=== PATIENT | female | born 1950 | race African-American/Black ===

== ENCOUNTER 2016-12-10 18:51 | Emergency (ER) | payer MEDICARE, MEDICAID ==
[~2016-12-10] VITALS: Ht 162.6 cm; Wt 58.0 kg
[~2016-12-10 18:51] MED LIST: ACET120E PO; ACET1TAB14 PO; AMLO10TA80 PO; ASPI-1159 GT; ATEN-42 GT; FAMO40TA35 PO; FERR-63 GT; OMEP20TA15 GT; PROT40 GT; VIT500LI GT
[2016-12-10] MEDS ORDERED: ACETAMINOPHEN WITH CODEINE 300/30MG TABLET PO ONE (20:00)
[2016-12-10 20:33] VITALS: BP 168/95
== END 2016-12-10 20:30 | disposition home or self-care (01) ==
LOC: ER 19:36
DX: K94.23 Gastrostomy malfunction (principal); Z79.82 Long term (current) use of aspirin
CPT/HCPCS: 43753; 43760; 99284; A4315

== ENCOUNTER 2016-12-28 15:24 | Emergency (ER) | payer MEDICARE, MEDICAID ==
[~2016-12-28] VITALS: Ht 165.1 cm; Wt 60.0 kg
[2016-12-28] MEDS ORDERED: MORPHINE SULFATE 4 MG/ML CPJ (NOT FOR IM USE) IV STA (16:40)
[2016-12-28 17:08] LABS: CLARITY URINE CLEAR (CLEAR); COLOR URINE YELLOW (YELLOW); GLUCOSE URINE NEGATIVE (NEGATIVE); KETONES URINE NEGATIVE (NEGATIVE); LEUKOCYTE ESTERASE URINE 1+ (NEGATIVE); NITRITE URINE NEGATIVE (NEGATIVE); OCCULT BLOOD URINE NEGATIVE (NEGATIVE); PROTEIN URINE 2+ (NEGATIVE); SPECIFIC GRAVITY URINE 1.026 (1.005-1.030)
[2016-12-28 17:22] LABS: BASOPHILS % 1.2 % (0.0-2.0); EOSINOPHILS % 1.5 % (0.0-5.0); HEMATOCRIT. 36.7 % (36.0-48.0); LYMPHOCYTES % 25.2 % (20.0-50.0); MEAN CORPUSCULAR HEMOGLOBIN 28.9 pg (28.0-32.0); MEAN CORPUSCULAR VOLUME 88.5 fL (81.0-99.0); MEAN PLATELET VOLUME 7.8 fl (7.4-10.4); MONOCYTES % 9.9 % (2.0-8.0); NEUTROPHILS % 62.2 % (40.0-76.0); PLATELET 280 x1000/uL (130-400); RED BLOOD CELL COUNT 4.15 mill/uL (4.2-5.4); RED CELL DISTRIBUTION WIDTH 15.8 % (11.6-14.6)
[2016-12-28 17:26] LABS: CHLORIDE 104 mEq/L (98-107)
[2016-12-28 17:28] LABS: PROTHROMBIN TIME 10.7 sec
[2016-12-28 17:35] LABS: CARBON DIOXIDE 27 mEq/L (21-32)
[2016-12-28] MEDS ORDERED: CEFTRIAXONE 1 G PREMIX 50 ML IV ONE (18:15)
[2016-12-28] MEDS ORDERED: TRAMADOL 50MG TABLET PO ONE (19:45)
[2016-12-28 20:00] VITALS: BP 131/82
== END 2016-12-28 20:05 | disposition home or self-care (01) ==
LOC: ER 15:24
DX: N39.0 Urinary tract infection, site not specified (principal); R10.819 Abdominal tenderness, unspecified site; Z43.1 Encounter for attention to gastrostomy; K59.00 Constipation, unspecified; K44.9 Diaphragmatic hernia without obstruction or gangrene; I11.9 Hypertensive heart disease without heart failure; J98.11 Atelectasis; J43.9 Emphysema, unspecified; Z95.0 Presence of cardiac pacemaker; Z98.84 Bariatric surgery status; Z79.82 Long term (current) use of aspirin; Z79.899 Other long term (current) drug therapy; I10 Essential (primary) hypertension; Z90.89 Acquired absence of other organs
CPT/HCPCS: 36415; 74176; 80053; 81001; 83690; 85025; 85610; 96365; 96375; 99285; J0696; J2270

== ENCOUNTER 2017-01-06 19:52 | Emergency (ER) | payer MEDICARE, MEDICAID ==
[~2017-01-06] VITALS: Ht 162.6 cm; Wt 58.0 kg
[2017-01-07 00:15] VITALS: BP 158/94
== END 2017-01-07 00:20 | disposition home or self-care (01) ==
LOC: ER 21:09
DX: Z43.1 Encounter for attention to gastrostomy (principal); I10 Essential (primary) hypertension; Z93.1 Gastrostomy status; Z79.82 Long term (current) use of aspirin; Z95.0 Presence of cardiac pacemaker
CPT/HCPCS: 43760; 74000; 99284

== ENCOUNTER 2017-01-14 18:58 | Emergency (ER) | payer MEDICARE, MEDICAID ==
[~2017-01-14] VITALS: Ht 162.6 cm; Wt 57.0 kg
[2017-01-15] MEDS ORDERED: HYDROCODONE/ACETAMINOPHEN 10/325MG TABLET PO ONE (00:30)
[2017-01-15 00:46] VITALS: BP 161/89
== END 2017-01-15 01:11 | disposition home or self-care (01) ==
LOC: ER 18:58
DX: Z43.1 Encounter for attention to gastrostomy (principal); I10 Essential (primary) hypertension; Z79.82 Long term (current) use of aspirin
CPT/HCPCS: 74000; 99283

== ENCOUNTER 2017-01-27 20:38 | Inpatient (IN) | payer MEDICARE, MEDICAID ==
[~2017-01-27] VITALS: Ht 162.6 cm; Wt 56.4 kg
[~2017-01-27 20:38] MED LIST changes: -FAMO40TA35 PO; +FAMO40TA70 PO
[2017-01-27] MEDS ORDERED: NITROGLYCERIN OINT 1GM/INCH UDPKT TD STA (22:52)
[2017-01-27] MEDS ORDERED: ENALAPRIL 2.5MG/2ML VIAL 2ML IV STA (22:52)
[2017-01-27 23:34] LABS: BASOPHILS % 1.2 % (0.0-2.0); EOSINOPHILS % 0.9 % (0.0-5.0); HEMATOCRIT. 34.4 % (36.0-48.0); HEMOGLOBIN. 11.2 g/dL (12.0-16.0); MEAN CORPUSCULAR HEMOGLOBIN 28.6 pg (28.0-32.0); MEAN CORPUSCULAR VOLUME 88.2 fL (81.0-99.0); MEAN PLATELET VOLUME 7.6 fl (7.4-10.4); MONOCYTES % 12.2 % (2.0-8.0); NEUTROPHILS % 59.7 % (40.0-76.0); PLATELET 272 x1000/uL (130-400); RED CELL DISTRIBUTION WIDTH 15.2 % (11.6-14.6)
[2017-01-27 23:43] LABS: CARBON DIOXIDE 25 mEq/L (21-32); CHLORIDE 107 mEq/L (98-107); TROPONIN I 0.16 ng/mL (0.00-0.04)
[2017-01-28] MEDS ORDERED: MORPHINE SULFATE 4 MG/ML CPJ (NOT FOR IM USE) IV ONE (00:30)
[2017-01-28] MEDS ORDERED: SODIUM CHLORIDE 0.9% 1,000 ML IV SCH (00:37)
[2017-01-28 02:50] VITALS: BP 126/62
[2017-01-28] MEDS ORDERED: ONDANSETRON HCL 4MG/2ML VIAL IV PRN (04:30)
[2017-01-28] MEDS ORDERED: IPRATROPIUM/ALBUTEROL 0.5-3(2.5)MG/3ML NEB INH PRN (04:30)
[2017-01-28] MEDS ORDERED: ACETAMINOPHEN WITH CODEINE 300/30MG TABLET PO PRN ×2 (04:30→12:30)
[2017-01-28] MEDS ORDERED: ACETAMINOPHEN WITH CODEINE 300/60MG TABLET PO SCH (04:30)
[2017-01-28] MEDS ORDERED: MORPHINE SULFATE 4 MG/ML CPJ (NOT FOR IM USE) IV NR (06:00)
[2017-01-28] MEDS: SODIUM CHLORIDE 0.9% INJ 3ML FLUSH IVF SCH ×3 (06:34→22:00)
[2017-01-28 08:00] VITALS: BP 130/80
[2017-01-28] MEDS: AMLODIPINE 10MG TABLET PO SCH (10:08)
[2017-01-28] MEDS: ATENOLOL 25MG TABLET PO SCH (10:09)
[2017-01-28] MEDS: ACETAMINOPHEN WITH CODEINE 120-12MG/5ML UDC PO PRN ×2 (10:34→17:30)
[2017-01-28 12:00] VITALS: BP 127/84
[2017-01-28 16:00] VITALS: BP 155/97
[2017-01-28 20:16] VITALS: BP 129/85
[2017-01-28] MEDS: HYDROMORPHONE HCL/PF 2MG/ML CPJ IV NR ×2 (21:04→21:12)
[2017-01-29] VITALS: BP 133/85
[2017-01-29 04:00] VITALS: BP 130/75
[2017-01-29] MEDS: SODIUM CHLORIDE 0.9% INJ 3ML FLUSH IVF SCH ×3 (06:54→22:27)
[2017-01-29 08:00] VITALS: BP 116/69
[2017-01-29] MEDS: ATENOLOL 25MG TABLET PO SCH (09:00)
[2017-01-29] MEDS: AMLODIPINE 10MG TABLET PO SCH (09:00)
[2017-01-29 12:00] VITALS: BP 123/82
[2017-01-29 16:00] VITALS: BP 134/90
[2017-01-29 20:00] VITALS: BP 170/88
[2017-01-29] MEDS: ACETAMINOPHEN WITH CODEINE 120-12MG/5ML UDC PO PRN (21:36)
[2017-01-29] MEDS ORDERED: CLONIDINE 0.1MG TABLET PO PRN (22:00)
[2017-01-29] MEDS ORDERED: HYDRALAZINE 20MG/ML VIAL IV PRN (22:00)
[2017-01-29] MEDS: HYDROMORPHONE HCL/PF 2MG/ML CPJ IV PRN (22:20)
[2017-01-30] VITALS: BP 160/97
[2017-01-30] MEDS: DIPHENHYDRAMINE 50MG/ML VIAL IV PRN ×2 (02:33→11:56)
[2017-01-30] MEDS: SODIUM CHLORIDE 0.9% INJ 3ML FLUSH IVF SCH ×2 (06:08→13:13)
[2017-01-30] MEDS ORDERED: LIDOCAINE HCL 1% 20ML VIAL (Pyxis) INJ ONE (07:29)
[2017-01-30] MEDS ORDERED: IOHEXOL-300 50 ML BOTTLE IV ONE (07:29)
[2017-01-30] MEDS ORDERED: SODIUM BICARBONATE 4% (2.4MEQ) 5ML VIAL IV ONE (07:29)
[2017-01-30 08:00] VITALS: BP 158/92
[2017-01-30] MEDS ORDERED: LIDOCAINE HCL 2% JELLY 5ML ONE (08:06)
[2017-01-30] MEDS: AMLODIPINE 10MG TABLET PO SCH (08:57)
[2017-01-30] MEDS: ATENOLOL 25MG TABLET PO SCH (08:57)
[2017-01-30] MEDS: HYDROMORPHONE HCL/PF 2MG/ML CPJ IV PRN (09:21)
[2017-01-30 12:00] VITALS: BP 123/83
[2017-01-30 16:13] VITALS: BP 152/92
[2017-01-30] MEDS: ACETAMINOPHEN WITH CODEINE 120-12MG/5ML UDC PO PRN (16:16)
[2017-01-30 17:56] VITALS: BP 132/91
== END 2017-01-30 19:30 | disposition home or self-care (01) | DRG 394 ==
LOC: ER 20:38 → 6WST 01-28 00:39 → EDBEDREQ 01-28 00:44 → ENRESERV 01-28 02:00
PROVIDERS: ADMIT Internal Medicine; ATTEND Internal Medicine
PROC: 0D2DXUZ Change Feeding Device in Lower Intestinal Tract, External Approach (ICD-10-PCS; principal; 2017-01-28)
DX: K94.13 Enterostomy malfunction (principal); E46 Unspecified protein-calorie malnutrition; I10 Essential (primary) hypertension; R07.89 Other chest pain; Y83.8 Other surgical procedures as the cause of abnormal reaction of the patient, or of later complication, without mention of misadventure at the time of the procedure; M54.2 Cervicalgia; E03.9 Hypothyroidism, unspecified; Z95.0 Presence of cardiac pacemaker; Z79.82 Long term (current) use of aspirin; Z79.899 Other long term (current) drug therapy; Z98.84 Bariatric surgery status; Z90.49 Acquired absence of other specified parts of digestive tract; Y92.89 Other specified places as the place of occurrence of the external cause; Z68.21 Body mass index [BMI] 21.0-21.9, adult
CPT/HCPCS: 36415; 49450; 71010; 80053; 83690; 84484; 85025; 93005; 96361; 96374; 96375; 99285; C1725; C1769; J0360; J1170; J1200; J2270; J3490; J7030; J7040; L8514; Q9967

== ENCOUNTER → 2017-12-14 | Outpatient (CLI) | payer MEDICARE, MEDICAID ==
[~2017-12-14] MED LIST changes: -ACET120E PO; -ACET1TAB14 PO; +AMLO10TA80 GT; -AMLO10TA80 PO; -ASPI-1159 GT; +FAMO40TA70 GT; -FAMO40TA70 PO; +FOLI0.4T2 GT; +HYDR25TA GT; -OMEP20TA15 GT; -PROT40 GT; -VIT500LI GT
== END | disposition home or self-care (01) ==
LOC: MAMMO 10:59
PROVIDERS: ATTEND Internal Medicine Nephrology
DX: Z12.31 Encounter for screening mammogram for malignant neoplasm of breast (principal); R92.1 Mammographic calcification found on diagnostic imaging of breast
CPT/HCPCS: 77067

== ENCOUNTER 2018-01-03 08:51 | Inpatient (IN) | payer MEDICARE, MEDICAID ==
[~2018-01-03] VITALS: Ht 162.6 cm; Wt 67.1 kg
[2018-01-03] MEDS ORDERED: NITROGLYCERIN OINT 1GM/INCH UDPKT TD ONE (10:15)
[2018-01-03] MEDS ORDERED: ASPIRIN 81MG TABLET PO ONE (10:15)
[2018-01-03 10:59] LABS: BASOPHILS % 1.2 % (0.0-2.0); EOSINOPHILS % 3.4 % (0.0-5.0); HEMATOCRIT. 33.6 % (36.0-48.0); HEMOGLOBIN. 11.2 g/dL (12.0-16.0); MEAN CORPUSCULAR VOLUME 87.3 fL (81.0-99.0); MEAN PLATELET VOLUME 7.9 fl (7.4-10.4); MONOCYTES % 8.6 % (2.0-8.0); NEUTROPHILS % 59.8 % (40.0-76.0); PLATELET 242 x1000/uL (130-400); RED BLOOD CELL COUNT 3.85 mill/uL (4.2-5.4); RED CELL DISTRIBUTION WIDTH 16.3 % (11.6-14.6)
[2018-01-03] MEDS ORDERED: LIDOCAINE HCL 1% 20ML VIAL (Pyxis) INJ ONE (11:08)
[2018-01-03] MEDS ORDERED: IOHEXOL-300 50 ML BOTTLE IV ONE (11:08)
[2018-01-03] MEDS ORDERED: SODIUM BICARBONATE 4% (2.4MEQ) 5ML VIAL IV ONE (11:08)
[2018-01-03 11:13] LABS: CHLORIDE 111 mEq/L (98-107)
[2018-01-03 11:14] LABS: PARTIAL THROMBOPLASTIN TIME 28.5 sec (23.4-31.0); PROTHROMBIN TIME 10.1 sec (9.1-11.1)
[2018-01-03] MEDS ORDERED: LIDOCAINE HCL 2% JELLY 5ML ONE (11:16)
[2018-01-03] MEDS ORDERED: MORPHINE SULFATE 4 MG/ML CPJ (NOT FOR IM USE) IV STA (12:45)
[2018-01-03] MEDS ORDERED: ONDANSETRON HCL 4MG/2ML VIAL IV STA (12:45)
[2018-01-03] MEDS ORDERED: IPRATROPIUM/ALBUTEROL 0.5-3(2.5)MG/3ML NEB INH PRN (14:00)
[2018-01-03] MEDS ORDERED: CLONIDINE 0.1MG TABLET PO PRN (14:00)
[2018-01-03] MEDS ORDERED: DOCUSATE SODIUM 100MG CAPSULE PO PRN (14:00)
[2018-01-03] MEDS ORDERED: MAGNESIUM/ALUMINUM HYDROXIDE/SIMETHICONE 30ML UDC PO PRN (14:00)
[2018-01-03] MEDS ORDERED: HYDRALAZINE 20MG/ML VIAL IV ONE (14:15)
[2018-01-03 16:00] VITALS: BP 152/91
[2018-01-03 16:28] VITALS: BP 152/91
[2018-01-03] MEDS ORDERED: ONDANSETRON 4MG ODT PO PRN (16:30)
[2018-01-03] MEDS: LOSARTAN POTASSIUM 25 MG TABLET PO SCH (17:27)
[2018-01-03] MEDS: FUROSEMIDE 40MG/4ML VIAL IVP SCH (17:27)
[2018-01-03 19:58] LABS: ETHANOL BLOOD < 10 mg/dL
[2018-01-03 20:00] VITALS: BP 148/89
[2018-01-03] MEDS: HYDROCODONE/ACETAMINOPHEN 5/325MG TABLET PO PRN (20:16)
[2018-01-03] MEDS: ATENOLOL 25MG TABLET PO SCH (20:17)
[2018-01-03] MEDS: AMLODIPINE 5MG TABLET PO SCH (20:17)
[2018-01-03] MEDS: IPRATROPIUM/ALBUTEROL 0.5-3(2.5)MG/3ML NEB HHN SCH (20:32)
[2018-01-03] MEDS ORDERED: ZOLPIDEM TARTRATE 5MG TABLET PO PRN (21:00)
[2018-01-04] VITALS (7 sets, daily range): BP systolic 125–142; BP diastolic 63–89
[2018-01-04] MEDS: MORPHINE SULFATE 4 MG/ML CPJ (NOT FOR IM USE) IV PRN ×2 (02:02→17:25)
[2018-01-04] MEDS: IPRATROPIUM/ALBUTEROL 0.5-3(2.5)MG/3ML NEB HHN SCH ×4 (02:20→21:09)
[2018-01-04] MEDS: OMEPRAZOLE 20MG CAPSULE EXTENDED RELEASE PO SCH (06:24)
[2018-01-04 07:48] LABS: HEMATOCRIT. 29.3 % (36.0-48.0); HEMOGLOBIN. 9.7 g/dL (12.0-16.0); LYMPHOCYTES % 21.1 % (20.0-50.0); MEAN CORPUSCULAR HEMOGLOBIN 28.6 pg (28.0-32.0); MEAN PLATELET VOLUME 8.4 fl (7.4-10.4); MONOCYTES % 12.9 % (2.0-8.0); PLATELET 245 x1000/uL (130-400); RED BLOOD CELL COUNT 3.41 mill/uL (4.2-5.4)
[2018-01-04 07:59] LABS: CHLORIDE 105 mEq/L (98-107)
[2018-01-04] MEDS: AMLODIPINE 5MG TABLET PO SCH ×2 (08:09→21:19)
[2018-01-04] MEDS: ATENOLOL 25MG TABLET PO SCH ×2 (08:10→21:19)
[2018-01-04] MEDS: FUROSEMIDE 40MG/4ML VIAL IVP SCH ×2 (08:11→17:21)
[2018-01-04] MEDS: LOSARTAN POTASSIUM 25 MG TABLET PO SCH (08:11)
[2018-01-04] MEDS: HYDROCODONE/ACETAMINOPHEN 5/325MG TABLET PO PRN ×2 (08:11→20:19)
[2018-01-04] MEDS ORDERED: POTASSIUM CHLORIDE 20MEQ/PACKET PO NR (11:00)
[2018-01-04] MEDS ORDERED: MAGNESIUM 1 G PREMIX 100 ML IV NR (12:00)
[2018-01-04 22:39] LABS: *AMPHETAMINES SCREEN URINE NEGATIVE (NEGATIVE); *BARBITURATES SCREEN URINE NEGATIVE (NEGATIVE); *BENZODIAZEPINES SCREEN URINE NEGATIVE (NEGATIVE); *COCAINE SCREEN URINE NEGATIVE (NEGATIVE); METHADONE URINE SCREEN NEGATIVE (NEGATIVE); OPIATES URINE SCREEN PRESUMTIVE POSITIVE (NEGATIVE)
[2018-01-04 22:40] LABS: CANNABINOID URINE SCREEN NEGATIVE (NEGATIVE); PHENCYCLIDINE URINE SCREEN NEGATIVE (NEGATIVE)
[2018-01-05] MEDS: MORPHINE SULFATE 4 MG/ML CPJ (NOT FOR IM USE) IV PRN ×3 (00:05→22:59)
[2018-01-05] MEDS: IPRATROPIUM/ALBUTEROL 0.5-3(2.5)MG/3ML NEB HHN SCH ×4 (02:35→20:14)
[2018-01-05 04:15] VITALS: BP 110/77
[2018-01-05] MEDS: OMEPRAZOLE 20MG CAPSULE EXTENDED RELEASE PO SCH (06:32)
[2018-01-05 06:53] LABS: HEMATOCRIT. 34.1 % (36.0-48.0); HEMOGLOBIN. 10.9 g/dL (12.0-16.0); MEAN CORPUSCULAR HEMOGLOBIN 27.9 pg (28.0-32.0); MEAN CORPUSCULAR VOLUME 86.7 fL (81.0-99.0); PLATELET 259 x1000/uL (130-400); RED BLOOD CELL COUNT 3.93 mill/uL (4.2-5.4); RED CELL DISTRIBUTION WIDTH 16.2 % (11.6-14.6)
[2018-01-05 07:06] LABS: CHLORIDE 102 mEq/L (98-107)
[2018-01-05] MEDS ORDERED: LIDOCAINE HCL 1% 20ML VIAL (Pyxis) INJ ONE (08:06)
[2018-01-05] MEDS ORDERED: IOHEXOL-300 50 ML BOTTLE IV ONE (08:06)
[2018-01-05] MEDS ORDERED: SODIUM BICARBONATE 4% (2.4MEQ) 5ML VIAL IV ONE (08:06)
[2018-01-05] MEDS ORDERED: LIDOCAINE HCL 2% JELLY 5ML ONE (08:35)
[2018-01-05] MEDS: ATENOLOL 25MG TABLET PO SCH ×2 (09:00→21:42)
[2018-01-05] MEDS: AMLODIPINE 5MG TABLET PO SCH ×2 (09:00→21:41)
[2018-01-05 09:38] LABS: PLATELET ESTIMATE NORMAL
[2018-01-05 12:00] VITALS: BP 102/67
[2018-01-05] MEDS: FUROSEMIDE 40MG/4ML VIAL IVP SCH ×2 (12:53→16:22)
[2018-01-05] MEDS: LOSARTAN POTASSIUM 25 MG TABLET PO SCH (12:53)
[2018-01-05 16:00] VITALS: BP 118/83
[2018-01-05 20:00] VITALS: BP 131/81
[2018-01-06] VITALS: BP 128/83
[2018-01-06] MEDS: IPRATROPIUM/ALBUTEROL 0.5-3(2.5)MG/3ML NEB HHN SCH ×2 (01:28→11:38)
[2018-01-06 04:00] VITALS: BP 120/81
[2018-01-06] MEDS: MORPHINE SULFATE 4 MG/ML CPJ (NOT FOR IM USE) IV PRN (06:34)
[2018-01-06 08:00] VITALS: BP 118/79
[2018-01-06] MEDS: FUROSEMIDE 40MG/4ML VIAL IVP SCH (09:00)
[2018-01-06] MEDS: LOSARTAN POTASSIUM 25 MG TABLET PO SCH (09:00)
[2018-01-06] MEDS: AMLODIPINE 5MG TABLET PO SCH (09:00)
[2018-01-06] MEDS ORDERED: FAMOTIDINE 20MG TABLET PO SCH (09:00)
[2018-01-06] MEDS: ATENOLOL 25MG TABLET PO SCH (09:00)
[2018-01-06] MEDS ORDERED: IOHEXOL-300 50 ML BOTTLE IV ONE ×2 (09:36→12:59)
[2018-01-06 12:00] VITALS: BP 100/67
[2018-01-06] MEDS ORDERED: SODIUM BICARBONATE 4% (2.4MEQ) 5ML VIAL IV ONE (12:59)
[2018-01-06] MEDS ORDERED: LIDOCAINE HCL 1% 20ML VIAL (Pyxis) INJ ONE (13:00)
[2018-01-06 15:13] VITALS: BP 100/67
[2018-01-06 16:00] VITALS: BP 105/66
== END 2018-01-06 16:24 | disposition home or self-care (01) | DRG 393 ==
LOC: ER 08:51 → 8WST 12:54 → EDBEDREQTM 12:58 → EDBEDREQ 12:58 → SUPCPDRO 13:12 → ENRESERV 13:37
PROVIDERS: ADMIT Family Medicine Adult Medicine; ATTEND Family Medicine Adult Medicine
PROC: 0D2DXUZ Change Feeding Device in Lower Intestinal Tract, External Approach (ICD-10-PCS; principal; 2018-01-03)
PROC: 0D2DXUZ Change Feeding Device in Lower Intestinal Tract, External Approach (ICD-10-PCS; 2018-01-05)
DX: K94.13 Enterostomy malfunction (principal); J96.00 Acute respiratory failure, unspecified whether with hypoxia or hypercapnia; I50.33 Acute on chronic diastolic (congestive) heart failure; I47.1 Supraventricular tachycardia; I11.0 Hypertensive heart disease with heart failure; D64.9 Anemia, unspecified; E11.9 Type 2 diabetes mellitus without complications; E03.9 Hypothyroidism, unspecified; E78.5 Hyperlipidemia, unspecified; I27.20 Pulmonary hypertension, unspecified; I49.5 Sick sinus syndrome; E87.8 Other disorders of electrolyte and fluid balance, not elsewhere classified; Y83.8 Other surgical procedures as the cause of abnormal reaction of the patient, or of later complication, without mention of misadventure at the time of the procedure; Z82.49 Family history of ischemic heart disease and other diseases of the circulatory system; Z87.01 Personal history of pneumonia (recurrent); Z90.49 Acquired absence of other specified parts of digestive tract; Z98.84 Bariatric surgery status; Z95.0 Presence of cardiac pacemaker; Z79.899 Other long term (current) drug therapy; Y92.89 Other specified places as the place of occurrence of the external cause
CPT/HCPCS: 36415; 36598; 49450; 71045; 74018; 80048; 80053; 80305; 83735; 83880; 84443; 84484; 85025; 85610; 85730; 86850; 86900; 93005; 93970; 94640; 96374; 96375; 99285; C1725; C1769; C1893; G0482; J0360; J1940; J2270; J2405; J3475; J3490; J7040; J7050; J7620; Q0162; Q9967

== ENCOUNTER → 2018-03-03 | Outpatient (CLI) | payer MEDICARE, MEDICAID ==
[~2018-03-03] MED LIST changes: -AMLO10TA80 GT; -ATEN-42 GT; -FAMO40TA70 GT; -FERR-63 GT; -HYDR25TA GT
== END | disposition home or self-care (01) ==
LOC: RAD 11:25
PROVIDERS: ATTEND Internal Medicine Nephrology
DX: R06.02 Shortness of breath (principal)
CPT/HCPCS: 71046

== ENCOUNTER → 2018-04-26 | Outpatient (CLI) | payer MEDICARE, MEDICAID | END | disposition home or self-care (01) | LOC: CT 09:24 | PROVIDERS: ATTEND Internal Medicine Nephrology | DX: K46.9 Unspecified abdominal hernia without obstruction or gangrene (principal) | CPT/HCPCS: 72192 ==

== ENCOUNTER 2018-05-22 17:23 | Inpatient (IN) | payer MEDICARE, MEDICAID ==
[~2018-05-22] VITALS: Ht 162.6 cm; Wt 62.7 kg
[2018-05-22] MEDS ORDERED: ASPIRIN 81MG TABLET PO ONE (19:30)
[2018-05-22] MEDS ORDERED: ONDANSETRON HCL 4MG/2ML INJ IV ONE (21:45)
[2018-05-22] MEDS ORDERED: MORPHINE SULFATE 10 MG/ML CPJ IV ONE (21:45)
[2018-05-22] MEDS ORDERED: KETOROLAC 30MG/ML VIAL IV ONE (21:45)
[2018-05-22 22:11] LABS: BASOPHILS % 0.5 % (0.0-2.0); EOSINOPHILS % 0.3 % (0.0-5.0); HEMATOCRIT. 39.1 % (36.0-48.0); HEMOGLOBIN. 12.8 g/dL (12.0-16.0); LYMPHOCYTES % 25.8 % (20.0-50.0); MEAN CORPUSCULAR HEMOGLOBIN 28.8 pg (28.0-32.0); MEAN CORPUSCULAR VOLUME 88.1 fL (81.0-99.0); MONOCYTES % 9.2 % (2.0-8.0); NEUTROPHILS % 64.2 % (40.0-76.0); PLATELET 338 x1000/uL (130-400); RED BLOOD CELL COUNT 4.44 mill/uL (4.2-5.4); RED CELL DISTRIBUTION WIDTH 15.1 % (11.6-14.6)
[2018-05-22 22:15] LABS: CHLORIDE 101 mEq/L (98-107)
[2018-05-22 22:20] LABS: *AMPHETAMINES SCREEN URINE NEGATIVE (NEGATIVE); *BARBITURATES SCREEN URINE NEGATIVE (NEGATIVE); *BENZODIAZEPINES SCREEN URINE NEGATIVE (NEGATIVE); *COCAINE SCREEN URINE NEGATIVE (NEGATIVE); METHADONE URINE SCREEN NEGATIVE (NEGATIVE)
[2018-05-22 22:21] LABS: CANNABINOID URINE SCREEN NEGATIVE (NEGATIVE); OPIATES URINE SCREEN PRESUMTIVE POSITIVE (NEGATIVE); PHENCYCLIDINE URINE SCREEN NEGATIVE (NEGATIVE)
[2018-05-22 22:22] LABS: ETHANOL BLOOD < 10 mg/dL; PARTIAL THROMBOPLASTIN TIME 26.4 sec (23.4-31.0); PROTHROMBIN TIME 10.1 sec (9.1-11.1)
[2018-05-22 22:25] LABS: CREATINE KINASE 72 IU/L (26-192)
[2018-05-22] MEDS ORDERED: CLONIDINE 0.1MG TABLET PO PRN (23:15)
[2018-05-22] MEDS ORDERED: ONDANSETRON HCL 4MG/2ML INJ IV PRN (23:15)
[2018-05-22] MEDS ORDERED: DOCUSATE SODIUM 100MG CAPSULE PO PRN (23:15)
[2018-05-22] MEDS ORDERED: IPRATROPIUM/ALBUTEROL 0.5-3(2.5)MG/3ML NEB INH PRN (23:15)
[2018-05-23] VITALS (7 sets, daily range): BP systolic 97–162; BP diastolic 70–114
[2018-05-23] MEDS ORDERED: AMLO2.5T45 MT (02:11)
[2018-05-23] MEDS ORDERED: FAMO-135 MT (02:11)
[2018-05-23] MEDS ORDERED: ATEN-42 MT (02:11)
[2018-05-23] MEDS: HYDROCODONE/ACETAMINOPHEN 5/325MG TABLET PO PRN ×2 (02:27→10:08)
[2018-05-23 07:18] LABS: BASOPHILS % 0.6 % (0.0-2.0); EOSINOPHILS % 0.2 % (0.0-5.0); HEMATOCRIT. 36.2 % (36.0-48.0); HEMOGLOBIN. 11.8 g/dL (12.0-16.0); LYMPHOCYTES % 14.5 % (20.0-50.0); MEAN CORPUSCULAR HEMOGLOBIN 28.9 pg (28.0-32.0); MEAN CORPUSCULAR VOLUME 88.8 fL (81.0-99.0); MEAN PLATELET VOLUME 8.6 fl (7.4-10.4); MONOCYTES % 10.3 % (2.0-8.0); NEUTROPHILS % 74.4 % (40.0-76.0); PLATELET 278 x1000/uL (130-400); RED BLOOD CELL COUNT 4.07 mill/uL (4.2-5.4); RED CELL DISTRIBUTION WIDTH 15.1 % (11.6-14.6)
[2018-05-23 07:26] LABS: CHLORIDE 103 mEq/L (98-107)
[2018-05-23 07:36] LABS: LDL CHOLESTEROL 45 mg/dL (5-100)
[2018-05-23 07:37] LABS: CREATINE KINASE 69 IU/L (26-192)
[2018-05-23 07:39] LABS: HDL CHOLESTEROL 87 mg/dL (40-59)
[2018-05-23] MEDS: ASPIRIN 81MG EC TABLET PO SCH (10:07)
[2018-05-23] MEDS: ENOXAPARIN 40MG/0.4ML SYR SUBCUT SCH (10:09)
[2018-05-23] MEDS ORDERED: AMLODIPINE 2.5MG TABLET PO SCH (12:45)
[2018-05-23] MEDS: HYDROCODONE/ACETAMINOPHEN 10/325MG TABLET PO PRN (14:25)
[2018-05-23] MEDS ORDERED: POTASSIUM CHLORIDE 20MEQ TABLET SR PO NR (16:30)
[2018-05-23] MEDS: LOSARTAN POTASSIUM 25 MG TABLET PO SCH (17:51)
[2018-05-23] MEDS: FUROSEMIDE 40MG/4ML VIAL IVP SCH (17:51)
[2018-05-24] VITALS: BP_SYST 117; BP_SYST 86; BP_DIAS 51; BP_DIAS 80
[2018-05-24] MEDS: HYDROCODONE/ACETAMINOPHEN 10/325MG TABLET PO PRN ×3 (02:03→17:35)
[2018-05-24 04:00] VITALS: BP 102/73
[2018-05-24 07:03] LABS: BASOPHILS % 1.1 % (0.0-2.0); EOSINOPHILS % 1.5 % (0.0-5.0); HEMATOCRIT. 37.5 % (36.0-48.0); LYMPHOCYTES % 29.9 % (20.0-50.0); MEAN CORPUSCULAR HEMOGLOBIN 28.6 pg (28.0-32.0); MEAN PLATELET VOLUME 8.2 fl (7.4-10.4); MONOCYTES % 12.4 % (2.0-8.0); NEUTROPHILS % 55.1 % (40.0-76.0); PLATELET 273 x1000/uL (130-400); RED BLOOD CELL COUNT 4.21 mill/uL (4.2-5.4)
[2018-05-24 07:25] LABS: FERRITIN 57 ng/mL (10-291)
[2018-05-24 07:53] LABS: CHLORIDE 102 mEq/L (98-107)
[2018-05-24 07:59] LABS: FOLIC ACID (FOLATE) SERUM >20 ng/mL ng/mL (>5.38)
[2018-05-24 08:00] VITALS: BP 93/61
[2018-05-24 08:03] LABS: TOTAL IRON BINDING CAPACITY 341 ug/dL (250-450)
[2018-05-24 08:05] LABS: CREATINE KINASE 51 IU/L (26-192)
[2018-05-24 08:08] LABS: CREATINE KINASE MB FRACTION 2.4 ng/mL (0.5-3.6)
[2018-05-24 08:11] LABS: VITAMIN B12 SERUM >2000 pg/mL pg/mL (211-911)
[2018-05-24] MEDS: LOSARTAN POTASSIUM 25 MG TABLET PO SCH (08:56)
[2018-05-24] MEDS: FUROSEMIDE 40MG/4ML VIAL IVP SCH (10:08)
[2018-05-24] MEDS: ASPIRIN 81MG EC TABLET PO SCH (10:08)
[2018-05-24] MEDS: ENOXAPARIN 40MG/0.4ML SYR SUBCUT SCH (10:08)
[2018-05-24 12:00] VITALS: BP 140/87
[2018-05-24 16:00] VITALS: BP 103/69
[2018-05-24] MEDS: ENTRESTO PO SCH (17:36)
[2018-05-24 20:00] VITALS: BP 100/67
[2018-05-24] MEDS: ACETAMINOPHEN 325MG TABLET PO PRN (20:20)
[2018-05-24] MEDS: CARVEDILOL 3.125 MG TABLET PO SCH (20:21)
[2018-05-24] MEDS ORDERED: AMLODIPINE 5MG TABLET PO SCH (21:00)
[2018-05-24 22:34] LABS: *AMPHETAMINES SCREEN URINE NEGATIVE (NEGATIVE); *BARBITURATES SCREEN URINE NEGATIVE (NEGATIVE); *BENZODIAZEPINES SCREEN URINE NEGATIVE (NEGATIVE); *COCAINE SCREEN URINE NEGATIVE (NEGATIVE); CANNABINOID URINE SCREEN NEGATIVE (NEGATIVE); METHADONE URINE SCREEN NEGATIVE (NEGATIVE); OPIATES URINE SCREEN PRESUMTIVE POSITIVE (NEGATIVE); PHENCYCLIDINE URINE SCREEN NEGATIVE (NEGATIVE)
[2018-05-25] VITALS (7 sets, daily range): BP systolic 86–135; BP diastolic 51–91
[2018-05-25 07:00] LABS: HEMATOCRIT. 36.8 % (36.0-48.0); MEAN CORPUSCULAR HEMOGLOBIN 28.9 pg (28.0-32.0); MEAN CORPUSCULAR VOLUME 88.5 fL (81.0-99.0); MEAN PLATELET VOLUME 8.1 fl (7.4-10.4); PLATELET 259 x1000/uL (130-400); RED BLOOD CELL COUNT 4.16 mill/uL (4.2-5.4); RED CELL DISTRIBUTION WIDTH 15.9 % (11.6-14.6)
[2018-05-25] MEDS: HYDROCODONE/ACETAMINOPHEN 10/325MG TABLET PO PRN ×3 (07:06→23:35)
[2018-05-25] MEDS: CARVEDILOL 3.125 MG TABLET PO SCH ×2 (09:00→21:10)
[2018-05-25] MEDS: ENTRESTO PO SCH ×2 (09:00→18:10)
[2018-05-25] MEDS ORDERED: FUROSEMIDE 20MG TABLET PO SCH ×2 (09:00)
[2018-05-25] MEDS: ASPIRIN 81MG EC TABLET PO SCH (09:56)
[2018-05-25] MEDS: ENOXAPARIN 40MG/0.4ML SYR SUBCUT SCH (10:00)
[2018-05-25] MEDS ORDERED: SODIUM CHLORIDE 0.9% 200 ML IV NR (11:00)
[2018-05-25] MEDS ORDERED: POTASSIUM CHLORIDE 20MEQ TABLET SR PO NR (11:00)
[2018-05-25 12:10] LABS: PLATELET ESTIMATE NORMAL
[2018-05-25] MEDS: ACETAMINOPHEN 325MG TABLET PO PRN (12:36)
[2018-05-25] MEDS: SODIUM CHLORIDE 0.9% 500 ML IV NR (13:35)
[2018-05-25] MEDS: LEVOFLOXACIN 500MG PREMIX 100 ML IV SCH (16:04)
[2018-05-25] MEDS: MORPHINE SULFATE 10 MG/ML CPJ IV PRN (21:11)
[2018-05-26] VITALS: BP 124/70
[2018-05-26] MEDS: SODIUM CHLORIDE 0.9% 500 ML IV NR (00:36)
[2018-05-26] MEDS: MORPHINE SULFATE 10 MG/ML CPJ IV PRN ×3 (02:48→22:51)
[2018-05-26 04:00] VITALS: BP 125/80
[2018-05-26] MEDS: HYDROCODONE/ACETAMINOPHEN 10/325MG TABLET PO PRN ×3 (06:22→18:24)
[2018-05-26 07:53] LABS: HEMATOCRIT. 36.6 % (36.0-48.0); MEAN CORPUSCULAR HEMOGLOBIN 29.1 pg (28.0-32.0); MEAN CORPUSCULAR VOLUME 88.7 fL (81.0-99.0); MEAN PLATELET VOLUME 8.2 fl (7.4-10.4); PLATELET 246 x1000/uL (130-400); RED BLOOD CELL COUNT 4.12 mill/uL (4.2-5.4); RED CELL DISTRIBUTION WIDTH 15.2 % (11.6-14.6)
[2018-05-26 08:00] VITALS: BP 114/71
[2018-05-26 08:10] LABS: CHLORIDE 102 mEq/L (98-107)
[2018-05-26] MEDS: ASPIRIN 81MG EC TABLET PO SCH (09:22)
[2018-05-26] MEDS: CARVEDILOL 3.125 MG TABLET PO SCH ×2 (09:22→20:47)
[2018-05-26] MEDS: ENOXAPARIN 40MG/0.4ML SYR SUBCUT SCH (09:22)
[2018-05-26] MEDS: ENTRESTO PO SCH ×2 (09:23→16:53)
[2018-05-26 10:10] LABS: PLATELET ESTIMATE NORMAL
[2018-05-26 12:00] VITALS: BP 115/80
[2018-05-26 16:00] VITALS: BP 113/83
[2018-05-26 20:00] VITALS: BP_SYST 110; BP_SYST 111; BP_SYST 120; BP_DIAS 77; BP_DIAS 81; BP_DIAS 84
[2018-05-26] MEDS ORDERED: DICLOFENAC SODIUM 75MG DR (EC) TABLET PO SCH (23:00)
[2018-05-27] VITALS: BP 115/78
[2018-05-27] MEDS: MORPHINE SULFATE 10 MG/ML CPJ IV PRN ×3 (02:53→13:33)
[2018-05-27 04:00] VITALS: BP 146/97
[2018-05-27] MEDS: HYDROCODONE/ACETAMINOPHEN 10/325MG TABLET PO PRN (06:19)
[2018-05-27 08:00] VITALS: BP_SYST 140; BP_SYST 143; BP_SYST 150; BP_DIAS 91; BP_DIAS 94; BP_DIAS 97
[2018-05-27] MEDS: CARVEDILOL 3.125 MG TABLET PO SCH (09:25)
[2018-05-27] MEDS: ASPIRIN 81MG EC TABLET PO SCH (09:25)
[2018-05-27] MEDS: ENTRESTO PO SCH (09:25)
[2018-05-27] MEDS: ENOXAPARIN 40MG/0.4ML SYR SUBCUT SCH (09:26)
[2018-05-27] MEDS ORDERED: MAGNESIUM/ALUMINUM HYDROXIDE/SIMETHICONE 30ML UDC PO PRN (10:30)
[2018-05-27 12:00] VITALS: BP 115/83
[2018-05-27] MEDS: LEVOFLOXACIN 500MG PREMIX 100 ML IV SCH (14:47)
[2018-05-27 14:51] VITALS: BP 115/83
[2018-05-27 16:27] VITALS: BP 96/62
[2018-05-29] MEDS ORDERED: LEVOFLOXACIN 500MG TABLET PO SCH (14:00)
[2018-05-30 17:06] LABS: ANTI-DNA DOUBLE STRANDED QUANT < 1 IU/mL (0-9); RNP ANTIBODY 0.2 AI (0.0-0.9); SMITH ANTIBODY < 0.2 AI (0.0-0.9)
[2018-05-31 09:10] LABS: ALDOLASE 4.5 U/L (3.3-10.3)
[2018-05-31 13:06] LABS: ANTI-MYELOPEROXIDASE AB < 9.0 U/mL (0.0-9.0); ANTI-PROTEINASE 3 ABS < 3.5 U/mL (0.0-3.5)
[2018-05-31 15:07] LABS: ANA IFA Negative (.); ATYPICAL P-ANCA <1:20 titer (Neg:<1:20); CYTOPLASMIC C-ANCA <1:20 titer (Neg:<1:20); PERINUCLEAR P-ANCA <1:20 titer (Neg:<1:20)
[2018-05-31 19:07] LABS: CYC CITRULLINATED PEP IgG/IgA 6 units (0-19)
== END 2018-05-27 16:30 | disposition home or self-care (01) | DRG 871 ==
LOC: ER 17:23 → 5WST 22:00 → EDBEDREQ 22:03 → EDBEDREQTM 22:03 → ENRESERV 22:32
PROVIDERS: ADMIT Internal Medicine Nephrology; ATTEND Internal Medicine Nephrology
PROC: 3E0U33Z Introduction of Anti-inflammatory into Joints, Percutaneous Approach (ICD-10-PCS; principal; 2018-05-26)
PROC: 3E0U3BZ Introduction of Anesthetic Agent into Joints, Percutaneous Approach (ICD-10-PCS; 2018-05-26)
PROC: 3E0233Z Introduction of Anti-inflammatory into Muscle, Percutaneous Approach (ICD-10-PCS; 2018-05-26)
PROC: 3E023BZ Introduction of Anesthetic Agent into Muscle, Percutaneous Approach (ICD-10-PCS; 2018-05-26)
DX: A41.59 Other Gram-negative sepsis (principal); I50.43 Acute on chronic combined systolic (congestive) and diastolic (congestive) heart failure; J96.00 Acute respiratory failure, unspecified whether with hypoxia or hypercapnia; I42.0 Dilated cardiomyopathy; K56.609 Unspecified intestinal obstruction, unspecified as to partial versus complete obstruction; N39.0 Urinary tract infection, site not specified; I27.20 Pulmonary hypertension, unspecified; D64.9 Anemia, unspecified; E78.00 Pure hypercholesterolemia, unspecified; I11.0 Hypertensive heart disease with heart failure; E03.9 Hypothyroidism, unspecified; C14.0 Malignant neoplasm of pharynx, unspecified; J44.9 Chronic obstructive pulmonary disease, unspecified; R13.10 Dysphagia, unspecified; M60.9 Myositis, unspecified; M75.92 Shoulder lesion, unspecified, left shoulder; M70.71 Other bursitis of hip, right hip; R07.89 Other chest pain; Z98.84 Bariatric surgery status; Z90.49 Acquired absence of other specified parts of digestive tract; Z93.3 Colostomy status; Z85.819 Personal history of malignant neoplasm of unspecified site of lip, oral cavity, and pharynx; Z93.1 Gastrostomy status; Z93.4 Other artificial openings of gastrointestinal tract status; Z87.01 Personal history of pneumonia (recurrent); Z95.810 Presence of automatic (implantable) cardiac defibrillator
CPT/HCPCS: 36415; 71045; 73200; 74018; 80048; 80061; 80305; 82085; 82550; 82553; 82607; 82728; 82746; 83520; 83540; 83550; 83605; 83735; 83880; 84443; 84484; 84550; 85379; 85651; 86200; 86225; 86235; 86256; 86431; 87077; 87186; 87804; 93005; 93306; 93970; 96374; 96375; 97162; 97166; 99285; C1893; G0482; J1650; J1885; J1940; J1956; J2270; J2405; J7040; J7050

== ENCOUNTER 2018-08-14 08:28 | Emergency (ER) | payer MEDICARE, MEDICAID ==
[~2018-08-14] VITALS: Ht 154.9 cm; Wt 59.0 kg
[~2018-08-14 08:28] MED LIST changes: +AMLO2.5T45 MT; +ATEN-42 MT; +FAMO-135 MT
[2018-08-14 10:32] LABS: HEMATOCRIT. 30.2 % (36.0-48.0); HEMOGLOBIN. 9.8 g/dL (12.0-16.0); MEAN CORPUSCULAR HEMOGLOBIN 29.8 pg (28.0-32.0); MEAN CORPUSCULAR VOLUME 91.7 fL (81.0-99.0); MEAN PLATELET VOLUME 7.6 fl (7.4-10.4); PLATELET 245 x1000/uL (130-400)
[2018-08-14 10:37] LABS: PROTHROMBIN TIME 9.7 sec (9.1-11.1)
[2018-08-14 10:42] LABS: CHLORIDE 113 mEq/L (98-107)
[2018-08-14 10:58] LABS: PLATELET ESTIMATE NORMAL
[2018-08-14] MEDS ORDERED: IOHEXOL-300 50 ML BOTTLE IV ONE (12:35)
[2018-08-14] MEDS ORDERED: LIDOCAINE HCL 1% 20ML VIAL (Pyxis) INJ ONE (12:35)
[2018-08-14] MEDS ORDERED: IOHEXOL-300 100 ML BOTTLE ONE (12:36)
[2018-08-14 15:00] VITALS: BP 131/82
== END 2018-08-14 16:00 | disposition home or self-care (01) ==
LOC: ER 08:28 → EDBEDREQ 10:21 → ER 16:00 → CANBEDREQ 16:52
DX: R05 Cough (principal); K94.23 Gastrostomy malfunction; I11.9 Hypertensive heart disease without heart failure; Z95.0 Presence of cardiac pacemaker; Z98.84 Bariatric surgery status; Z79.899 Other long term (current) drug therapy
CPT/HCPCS: 36415; 36598; 49450; 80053; 85025; 85610; 99284; C1769; J3490; Q9967

== ENCOUNTER → 2019-03-01 | Outpatient (CLI) | payer MEDICARE, MEDICAID ==
[~2019-03-01] MED LIST changes: +COR6 MT; +OMEP40CA34 MT; +SACU1TAB MT
== END | disposition home or self-care (01) ==
LOC: RAD 10:29
PROVIDERS: ATTEND Internal Medicine Nephrology
DX: R06.02 Shortness of breath (principal); I51.7 Cardiomegaly
CPT/HCPCS: 71045

== ENCOUNTER → 2019-04-10 | Outpatient (CLI) | payer MEDICARE, MEDICAID | END | disposition home or self-care (01) | LOC: MAMMO 09:37 | PROVIDERS: ATTEND Internal Medicine Nephrology | DX: Z12.31 Encounter for screening mammogram for malignant neoplasm of breast (principal) | CPT/HCPCS: 77067 ==

== ENCOUNTER 2020-01-06 12:55 | Inpatient (IN) | payer MEDICARE, MEDICAID ==
[~2020-01-06] VITALS: Ht 162.6 cm; Wt 71.9 kg
[~2020-01-06 12:55] MED LIST changes: +OMEP40CA12 MT; -OMEP40CA34 MT
[2020-01-06] MEDS ORDERED: VANCOMYCIN 1 G PREMIX 200 ML IV ONE (13:15)
[2020-01-06] MEDS ORDERED: PIPERACILLIN/TAZ 3.375G PREMIX 50 ML IV ONE (13:15)
[2020-01-06] MEDS ORDERED: SODIUM CHLORIDE 0.9% 1000ML BAG (SEPSIS BOLUS) IV ONE (13:15)
[2020-01-06 14:42] LABS: HEMATOCRIT. 44.1 % (36.0-48.0); HEMOGLOBIN. 14.8 g/dL (12.0-16.0); MEAN CORPUSCULAR HEMOGLOBIN 30.4 pg (28.0-32.0); MEAN CORPUSCULAR VOLUME 90.7 fL (81.0-99.0); MEAN PLATELET VOLUME 9.9 fl (7.4-10.4); PLATELET 171 x1000/uL (130-400); RED BLOOD CELL COUNT 4.87 mill/uL (4.2-5.4); RED CELL DISTRIBUTION WIDTH 16.5 % (11.6-14.6)
[2020-01-06 14:49] LABS: CHLORIDE 100 mEq/L (98-107)
[2020-01-06 14:51] LABS: INR 0.9; PROTHROMBIN TIME 9.7 sec (9.6-11.0)
[2020-01-06 17:40] LABS: PLATELET ESTIMATE NORMAL
[2020-01-06] MEDS ORDERED: SODIUM CHLORIDE 0.9% 1,000 ML IV SCH (20:10)
[2020-01-06] MEDS ORDERED: DOCUSATE SODIUM 100MG CAPSULE PO PRN (20:15)
[2020-01-06] MEDS ORDERED: ACETAMINOPHEN 325MG TABLET PO PRN (20:15)
[2020-01-06] MEDS ORDERED: ONDANSETRON HCL 4MG/2ML INJ IV PRN (20:15)
[2020-01-06] MEDS ORDERED: LORAZEPAM 2MG/ML CPJ IV PRN (20:15)
[2020-01-06] MEDS: MORPHINE SULFATE 2 MG/ML CPJ (NOT FOR IM USE) IV PRN (20:48)
[2020-01-06] MEDS ORDERED: CEFTRIAXONE SODIUM 1 G/VIAL IM SCH (21:00)
[2020-01-07] VITALS: BP 90/45
[2020-01-07] MEDS ORDERED: POTASSIUM CHLORIDE 20MEQ TABLET SR PO SCH (00:15)
[2020-01-07] MEDS ORDERED: FURO-152 MT (00:35)
[2020-01-07] MEDS ORDERED: DIGO125T80 PO (00:35)
[2020-01-07] MEDS: THIAMINE HCL 100MG TABLET PO SCH ×2 (00:44→08:24)
[2020-01-07] MEDS: ENOXAPARIN 30MG/0.3ML SYR SUBCUT SCH ×2 (00:44→21:01)
[2020-01-07 01:47] LABS: CLARITY URINE CLEAR (CLEAR); COLOR URINE YELLOW (YELLOW); KETONES URINE NEGATIVE (NEGATIVE); LEUKOCYTE ESTERASE URINE NEGATIVE (NEGATIVE); NITRITE URINE NEGATIVE (NEGATIVE); OCCULT BLOOD URINE TRACE (NEGATIVE); PH URINE 5.5 (4.5-8.0); PROTEIN URINE TRACE (NEGATIVE); UROBILINOGEN URINE 0.2 E.U./dL (0.2-1.0)
[2020-01-07] MEDS ORDERED: CEFTRIAXONE 1,000 MG in DEXTROSE 5% WATER 50 ML IV SCH (02:00)
[2020-01-07] MEDS: MORPHINE SULFATE 2 MG/ML CPJ (NOT FOR IM USE) IV PRN ×3 (03:03→21:03)
[2020-01-07 04:00] VITALS: BP 107/60
[2020-01-07 06:16] LABS: BASOPHILS % 0.3 % (0.0-2.0); EOSINOPHILS % 0.1 % (0.0-5.0); HEMATOCRIT. 40.1 % (36.0-48.0); LYMPHOCYTES % 10.5 % (20.0-50.0); MEAN CORPUSCULAR HEMOGLOBIN 29.7 pg (28.0-32.0); MEAN CORPUSCULAR VOLUME 91.2 fL (81.0-99.0); MONOCYTES % 5.3 % (2.0-8.0); NEUTROPHILS % 83.8 % (40.0-76.0); RED CELL DISTRIBUTION WIDTH 16.9 % (11.6-14.6)
[2020-01-07 06:23] LABS: PHOSPHORUS 4.7 mg/dL (2.5-4.9)
[2020-01-07 08:00] VITALS: BP 89/45
[2020-01-07] MEDS ORDERED: PIPERACILLIN/TAZOBACTAM 3.375 G in DEXT 5% WATER 100 ML IV SCH (10:30)
[2020-01-07 12:00] VITALS: BP 84/54
[2020-01-07] MEDS: HYDROCODONE/ACETAMINOPHEN 5/325MG TABLET PO PRN (12:03)
[2020-01-07] MEDS: DEXT 5%/0.45% NACL 1000ML 1,000 ML IV SCH ×2 (12:07→22:25)
[2020-01-07] MEDS: PIPERACILLIN/TAZOBACTAM 2.25 G in DEXTROSE 5% WATER 50 ML IV SCH ×2 (12:08→21:01)
[2020-01-07 13:32] LABS: MEAN PLATELET VOLUME 9.9 fl (7.4-10.4); PLATELET 122 x1000/uL (130-400); PLATELET ESTIMATE SLIGHTLY DECREASED
[2020-01-07 16:00] VITALS: BP 95/61
[2020-01-07] MEDS ORDERED: DIATR MEGLU/DIATRIZOATE SOLN 30ML PO NR (18:00)
[2020-01-07] MEDS ORDERED: POTASSIUM CHLORIDE 20MEQ TABLET SR PO NR (18:00)
[2020-01-07 20:00] VITALS: BP 110/59
[2020-01-07] MEDS: OMEPRAZOLE 20MG CAPSULE EXTENDED RELEASE PO SCH (21:01)
[2020-01-07] MEDS ORDERED: SODIUM CHLORIDE 0.9% 1,000 ML IV SCH (23:15)
[2020-01-08] VITALS (7 sets, daily range): BP systolic 79–112; BP diastolic 48–72
[2020-01-08 06:18] LABS: CHLORIDE 113 mEq/L (98-107)
[2020-01-08 06:19] LABS: HEMATOCRIT. 38.1 % (36.0-48.0); HEMOGLOBIN. 12.3 g/dL (12.0-16.0); MEAN CORPUSCULAR HEMOGLOBIN 29.3 pg (28.0-32.0); MEAN CORPUSCULAR VOLUME 90.4 fL (81.0-99.0); MEAN PLATELET VOLUME 9.9 fl (7.4-10.4); PLATELET 117 x1000/uL (130-400); RED BLOOD CELL COUNT 4.21 mill/uL (4.2-5.4); RED CELL DISTRIBUTION WIDTH 17.3 % (11.6-14.6)
[2020-01-08] MEDS: PIPERACILLIN/TAZOBACTAM 2.25 G in DEXTROSE 5% WATER 50 ML IV SCH ×3 (06:19→21:14)
[2020-01-08] MEDS: OMEPRAZOLE 20MG CAPSULE EXTENDED RELEASE PO SCH ×2 (06:19→21:11)
[2020-01-08 06:30] LABS: CREATINE KINASE 44 IU/L (26-192)
[2020-01-08] MEDS: THIAMINE HCL 100MG TABLET PO SCH (08:11)
[2020-01-08] MEDS ORDERED: SODIUM BICARBONATE 650 MG TABLET PO SCH (09:00)
[2020-01-08] MEDS ORDERED: DIATR MEGLU/DIATRIZOATE SOLN 30ML PO NR (10:35)
[2020-01-08] MEDS: MIDODRINE HCL 5MG TABLET PO SCH ×2 (10:45→21:10)
[2020-01-08] MEDS: SODIUM BICARBONATE 150 MEQ in DEXTROSE 5% WATER 1,000 ML IV SCH (12:30)
[2020-01-08] MEDS: MORPHINE SULFATE 2 MG/ML CPJ (NOT FOR IM USE) IV PRN (12:39)
[2020-01-08 17:56] LABS: PLATELET ESTIMATE DECREASED
[2020-01-08] MEDS: ENOXAPARIN 30MG/0.3ML SYR SUBCUT SCH (21:11)
[2020-01-09] VITALS: BP 90/52
[2020-01-09] MEDS: SODIUM BICARBONATE 150 MEQ in DEXTROSE 5% WATER 1,000 ML IV SCH ×2 (03:20→17:40)
[2020-01-09 04:00] VITALS: BP 93/59
[2020-01-09] MEDS: OMEPRAZOLE 20MG CAPSULE EXTENDED RELEASE PO SCH ×2 (05:30→20:52)
[2020-01-09] MEDS: PIPERACILLIN/TAZOBACTAM 2.25 G in DEXTROSE 5% WATER 50 ML IV SCH ×3 (05:30→21:45)
[2020-01-09] MEDS: MIDODRINE HCL 5MG TABLET PO SCH ×3 (05:30→21:51)
[2020-01-09 06:52] LABS: HEMATOCRIT. 33.3 % (36.0-48.0); MEAN CORPUSCULAR HEMOGLOBIN 29.2 pg (28.0-32.0); MEAN CORPUSCULAR VOLUME 88.8 fL (81.0-99.0); MEAN PLATELET VOLUME 9.5 fl (7.4-10.4); PLATELET 120 x1000/uL (130-400); RED BLOOD CELL COUNT 3.75 mill/uL (4.2-5.4); RED CELL DISTRIBUTION WIDTH 17.2 % (11.6-14.6)
[2020-01-09 08:00] VITALS: BP 94/50
[2020-01-09] MEDS: THIAMINE HCL 100MG TABLET PO SCH (08:09)
[2020-01-09] MEDS ORDERED: POTASSIUM CHLORIDE 20MEQ TABLET SR PO ONE (10:45)
[2020-01-09] MEDS ORDERED: POTASSIUM CHLORIDE 20MEQ TABLET SR PO NR (11:00)
[2020-01-09 12:00] VITALS: BP 102/53
[2020-01-09 14:26] LABS: PLATELET ESTIMATE SLIGHTLY DECREASED
[2020-01-09 16:00] VITALS: BP 108/58
[2020-01-09] MEDS: ENOXAPARIN 30MG/0.3ML SYR SUBCUT SCH (20:52)
[2020-01-10] VITALS: BP 86/54
[2020-01-10 04:00] VITALS: BP 116/66
[2020-01-10] MEDS: MIDODRINE HCL 5MG TABLET PO SCH ×3 (06:37→21:00)
[2020-01-10] MEDS: PIPERACILLIN/TAZOBACTAM 2.25 G in DEXTROSE 5% WATER 50 ML IV SCH (06:37)
[2020-01-10 08:00] VITALS: BP 109/53
[2020-01-10 08:00] LABS: BASOPHILS % 0.4 % (0.0-2.0); EOSINOPHILS % 0.3 % (0.0-5.0); HEMATOCRIT. 31.5 % (36.0-48.0); HEMOGLOBIN. 10.4 g/dL (12.0-16.0); LYMPHOCYTES % 9.3 % (20.0-50.0); MEAN CORPUSCULAR HEMOGLOBIN 29.2 pg (28.0-32.0); MEAN CORPUSCULAR VOLUME 88.3 fL (81.0-99.0); MEAN PLATELET VOLUME 9.4 fl (7.4-10.4); MONOCYTES % 12.8 % (2.0-8.0); NEUTROPHILS % 77.2 % (40.0-76.0); PLATELET 146 x1000/uL (130-400); RED BLOOD CELL COUNT 3.57 mill/uL (4.2-5.4); RED CELL DISTRIBUTION WIDTH 16.6 % (11.6-14.6)
[2020-01-10 08:21] LABS: CHLORIDE 109 mEq/L (98-107)
[2020-01-10] MEDS ORDERED: POTASSIUM CHLORIDE 20MEQ TABLET SR PO NR (10:00)
[2020-01-10] MEDS: SODIUM BICARBONATE 150 MEQ in DEXTROSE 5% WATER 1,000 ML IV SCH (10:00)
[2020-01-10] MEDS: OMEPRAZOLE 20MG CAPSULE EXTENDED RELEASE PO SCH ×2 (10:06→21:00)
[2020-01-10] MEDS: SODIUM CHLORIDE 0.9% 1,000 ML IV SCH (10:06)
[2020-01-10] MEDS: THIAMINE HCL 100MG TABLET PO SCH (10:07)
[2020-01-10] MEDS ORDERED: POTASSIUM CHLORIDE INJ 40 MEQ in DEXT 5% WATER 250 ML IV NR (12:00)
[2020-01-10 12:03] VITALS: BP 112/63
[2020-01-10] MEDS ORDERED: TRAMADOL 50MG TABLET PO PRN (14:30)
[2020-01-10 16:00] VITALS: BP 118/59
[2020-01-10 20:00] VITALS: BP 107/62
[2020-01-10] MEDS: ENOXAPARIN 30MG/0.3ML SYR SUBCUT SCH (20:59)
[2020-01-11] VITALS (7 sets, daily range): BP systolic 115–141; BP diastolic 66–74
[2020-01-11] MEDS: SODIUM BICARBONATE 150 MEQ in DEXTROSE 5% WATER 1,000 ML IV SCH ×2 (01:18→16:40)
[2020-01-11] MEDS: SODIUM CHLORIDE 0.9% 1,000 ML IV SCH (03:11)
[2020-01-11] MEDS: OMEPRAZOLE 20MG CAPSULE EXTENDED RELEASE PO SCH ×2 (06:34→20:59)
[2020-01-11] MEDS: MIDODRINE HCL 5MG TABLET PO SCH (06:35)
[2020-01-11 08:35] LABS: HEMATOCRIT. 29.6 % (36.0-48.0); HEMOGLOBIN. 9.9 g/dL (12.0-16.0); MEAN CORPUSCULAR HEMOGLOBIN 29.3 pg (28.0-32.0); MEAN CORPUSCULAR VOLUME 87.7 fL (81.0-99.0); MEAN PLATELET VOLUME 8.3 fl (7.4-10.4); PLATELET 183 x1000/uL (130-400); RED BLOOD CELL COUNT 3.38 mill/uL (4.2-5.4); RED CELL DISTRIBUTION WIDTH 16.3 % (11.6-14.6)
[2020-01-11] MEDS ORDERED: POTASSIUM CHLORIDE 20MEQ TABLET SR PO NR (09:30)
[2020-01-11] MEDS: THIAMINE HCL 100MG TABLET PO SCH (09:45)
[2020-01-11] MEDS: HYDROCODONE/ACETAMINOPHEN 5/325MG TABLET PO PRN (09:46)
[2020-01-11] MEDS ORDERED: LOPERAMIDE HCL 2MG CAPSULE PO PRN (13:45)
[2020-01-11] MEDS ORDERED: TRAM50TA3 PO (14:03)
[2020-01-11] MEDS: ENOXAPARIN 30MG/0.3ML SYR SUBCUT SCH (20:59)
[2020-01-11] MEDS ORDERED: DOXYCYCLINE HYCLATE 100MG CAPSULE PO SCH (21:00)
[2020-01-11] MEDS ORDERED: CARVEDILOL 6.25 MG TABLET PO SCH (21:00)
[2020-01-12 13:33] LABS: PLATELET ESTIMATE NORMAL
== END 2020-01-11 22:05 | DRG 871 ==
LOC: ER 12:55 → 7WST 13:52 → EDBEDREQ 14:01 → EDBEDREQSVC 14:01 → CANRESERV 21:02 → ENRESERV 21:02 → 6WST 01-07 20:00
PROVIDERS: ADMIT Internal Medicine Nephrology; ATTEND Internal Medicine Nephrology
DX: A41.9 Sepsis, unspecified organism (principal); N17.0 Acute kidney failure with tubular necrosis; R65.21 Severe sepsis with septic shock; G93.41 Metabolic encephalopathy; E44.1 Mild protein-calorie malnutrition; E87.1 Hypo-osmolality and hyponatremia; K81.0 Acute cholecystitis; E87.2 Acidosis; I67.82 Cerebral ischemia; K56.600 Partial intestinal obstruction, unspecified as to cause; I50.22 Chronic systolic (congestive) heart failure; K52.9 Noninfective gastroenteritis and colitis, unspecified; D69.6 Thrombocytopenia, unspecified; I25.5 Ischemic cardiomyopathy; K43.9 Ventral hernia without obstruction or gangrene; K83.8 Other specified diseases of biliary tract; D63.8 Anemia in other chronic diseases classified elsewhere; Z20.828 Contact with and (suspected) exposure to other viral communicable diseases; E87.6 Hypokalemia; K21.9 Gastro-esophageal reflux disease without esophagitis; I11.0 Hypertensive heart disease with heart failure; R26.9 Unspecified abnormalities of gait and mobility; I25.2 Old myocardial infarction; Z93.3 Colostomy status; Z85.819 Personal history of malignant neoplasm of unspecified site of lip, oral cavity, and pharynx; Z98.84 Bariatric surgery status; Z95.0 Presence of cardiac pacemaker; Z82.49 Family history of ischemic heart disease and other diseases of the circulatory system; Z68.27 Body mass index [BMI] 27.0-27.9, adult; Z90.49 Acquired absence of other specified parts of digestive tract
CPT/HCPCS: 36415; 71045; 74018; 74176; 76700; 76770; 78227; 80048; 80053; 80076; 81003; 82248; 82550; 82728; 83605; 83735; 84100; 84145; 84484; 85025; 87015; 87045; 87427; 87449; 87635; 92610; 93005; 93306; 96365; 97116; 97162; 97166; 99285; A9537; J0696; J1650; J2270; J2543; J3370; J3480; J3490; J7030; J7060; J7070; Q9963

== ENCOUNTER 2020-01-11 22:04 | Inpatient (IN) | payer MEDICARE, MEDICAID ==
[~2020-01-11] VITALS: Ht 162.6 cm; Wt 71.7 kg
[~2020-01-11 22:04] MED LIST changes: -AMLO2.5T45 MT; -ATEN-42 MT; +DIGO125T80 PO; +FURO-152 MT; -SACU1TAB MT; +TRAM50TA3 PO
[2020-01-11 22:30] VITALS: BP 131/78
[2020-01-11] MEDS ORDERED: ONDANSETRON HCL 4MG/2ML INJ IV PRN (22:45)
[2020-01-12 06:56] LABS: CHLORIDE 120 mEq/L (98-107)
[2020-01-12 07:07] LABS: HEMATOCRIT. 27.2 % (36.0-48.0); HEMOGLOBIN. 9.1 g/dL (12.0-16.0); MEAN CORPUSCULAR HEMOGLOBIN 29.7 pg (28.0-32.0); MEAN CORPUSCULAR VOLUME 88.7 fL (81.0-99.0); MEAN PLATELET VOLUME 8.5 fl (7.4-10.4); PLATELET 209 x1000/uL (130-400); RED BLOOD CELL COUNT 3.07 mill/uL (4.2-5.4); RED CELL DISTRIBUTION WIDTH 16.2 % (11.6-14.6)
[2020-01-12 07:45] VITALS: BP 117/70
[2020-01-12] MEDS: DOXYCYCLINE HYCLATE 100MG CAPSULE PO SCH ×2 (08:21→21:01)
[2020-01-12] MEDS: OMEPRAZOLE 20MG CAPSULE EXTENDED RELEASE PO SCH ×2 (08:21→21:01)
[2020-01-12] MEDS: THIAMINE HCL 100MG TABLET PO SCH (08:22)
[2020-01-12] MEDS: CARVEDILOL 6.25 MG TABLET PO SCH ×2 (08:22→21:02)
[2020-01-12] MEDS: TRAMADOL 50MG TABLET PO PRN (18:01)
[2020-01-12 20:00] VITALS: BP 137/78
[2020-01-12] MEDS: ENOXAPARIN 30MG/0.3ML SYR SUBCUT SCH (21:02)
[2020-01-12 22:34] LABS: PLATELET ESTIMATE NORMAL
[2020-01-13 07:44] VITALS: BP 126/68
[2020-01-13] MEDS: CARVEDILOL 6.25 MG TABLET PO SCH ×2 (08:00→21:10)
[2020-01-13] MEDS: DOXYCYCLINE HYCLATE 100MG CAPSULE PO SCH ×2 (08:16→21:09)
[2020-01-13] MEDS: THIAMINE HCL 100MG TABLET PO SCH (08:16)
[2020-01-13] MEDS: OMEPRAZOLE 20MG CAPSULE EXTENDED RELEASE PO SCH ×2 (08:16→21:09)
[2020-01-13] MEDS: TRAMADOL 50MG TABLET PO PRN ×2 (08:17→18:27)
[2020-01-13 20:00] VITALS: BP 133/82
[2020-01-13] MEDS: ENOXAPARIN 30MG/0.3ML SYR SUBCUT SCH (21:10)
[2020-01-14 08:00] VITALS: BP 114/69
[2020-01-14] MEDS: DOXYCYCLINE HYCLATE 100MG CAPSULE PO SCH ×2 (08:29→22:26)
[2020-01-14] MEDS: OMEPRAZOLE 20MG CAPSULE EXTENDED RELEASE PO SCH ×2 (08:29→22:26)
[2020-01-14] MEDS: DOCUSATE SODIUM 100MG CAPSULE PO PRN (08:29)
[2020-01-14] MEDS: LOPERAMIDE HCL 2MG CAPSULE PO PRN (08:29)
[2020-01-14] MEDS: THIAMINE HCL 100MG TABLET PO SCH (08:29)
[2020-01-14] MEDS: CARVEDILOL 6.25 MG TABLET PO SCH ×2 (08:30→22:26)
[2020-01-14 10:33] LABS: HEMATOCRIT. 31.8 % (36.0-48.0); HEMOGLOBIN. 10.4 g/dL (12.0-16.0); MEAN CORPUSCULAR HEMOGLOBIN 29.5 pg (28.0-32.0); MEAN CORPUSCULAR VOLUME 90.4 fL (81.0-99.0); MEAN PLATELET VOLUME 8.4 fl (7.4-10.4); PLATELET 320 x1000/uL (130-400); RED BLOOD CELL COUNT 3.52 mill/uL (4.2-5.4); RED CELL DISTRIBUTION WIDTH 16.2 % (11.6-14.6)
[2020-01-14 10:43] LABS: CHLORIDE 117 mEq/L (98-107)
[2020-01-14 10:49] LABS: PHOSPHORUS 3.8 mg/dL (2.5-4.9)
[2020-01-14 10:50] LABS: TOTAL IRON BINDING CAPACITY 233 ug/dL (250-450)
[2020-01-14 12:10] LABS: FERRITIN 305 ng/mL (10-291)
[2020-01-14 12:27] LABS: FOLIC ACID (FOLATE) SERUM > 20.00 ng/mL (>5.38); VITAMIN B12 SERUM > 2000.0 pg/mL (211-911)
[2020-01-14 14:09] LABS: PLATELET ESTIMATE NORMAL
[2020-01-14] MEDS: MULTIVITAMINS,THER W-MINERALS TABLET PO SCH (17:37)
[2020-01-14 20:00] VITALS: BP 125/83
[2020-01-14] MEDS: ENOXAPARIN 40MG/0.4ML SYR SUBCUT SCH (22:27)
[2020-01-15] MEDS: LEVOTHYROXINE SODIUM 50MCG TABLET PO SCH (06:16)
[2020-01-15 07:46] VITALS: BP 126/75
[2020-01-15] MEDS: HYDROCODONE/ACETAMINOPHEN 5/325MG TABLET PO PRN ×3 (08:26→21:25)
[2020-01-15] MEDS: FAMOTIDINE 20MG TABLET PO SCH (08:27)
[2020-01-15] MEDS: DOXYCYCLINE HYCLATE 100MG CAPSULE PO SCH ×2 (08:27→21:24)
[2020-01-15] MEDS: DOCUSATE SODIUM 100MG CAPSULE PO PRN (08:27)
[2020-01-15] MEDS: CARVEDILOL 6.25 MG TABLET PO SCH ×2 (08:28→21:25)
[2020-01-15] MEDS: MULTIVITAMINS,THER W-MINERALS TABLET PO SCH (08:28)
[2020-01-15] MEDS: LOPERAMIDE HCL 2MG CAPSULE PO PRN (08:29)
[2020-01-15] MEDS: THIAMINE HCL 100MG TABLET PO SCH (08:29)
[2020-01-15 08:54] VITALS: BP 126/75
[2020-01-15 20:00] VITALS: BP 133/83
[2020-01-15] MEDS: ENOXAPARIN 40MG/0.4ML SYR SUBCUT SCH (21:25)
[2020-01-16] MEDS: LEVOTHYROXINE SODIUM 50MCG TABLET PO SCH (06:34)
[2020-01-16 07:38] VITALS: BP 125/80
[2020-01-16] MEDS: MULTIVITAMINS,THER W-MINERALS TABLET PO SCH (08:23)
[2020-01-16] MEDS: TRAMADOL 50MG TABLET PO PRN (08:23)
[2020-01-16] MEDS: DOXYCYCLINE HYCLATE 100MG CAPSULE PO SCH ×2 (08:23→20:50)
[2020-01-16] MEDS: FAMOTIDINE 20MG TABLET PO SCH (08:23)
[2020-01-16] MEDS: CARVEDILOL 6.25 MG TABLET PO SCH ×2 (08:23→20:50)
[2020-01-16] MEDS: THIAMINE HCL 100MG TABLET PO SCH (08:24)
[2020-01-16] MEDS ORDERED: COR6 PO (11:28)
[2020-01-16] MEDS ORDERED: OMEP20TA2 MT (11:28)
[2020-01-16 20:00] VITALS: BP 115/70
[2020-01-16] MEDS: HYDROCODONE/ACETAMINOPHEN 5/325MG TABLET PO PRN (20:50)
[2020-01-16] MEDS: ENOXAPARIN 40MG/0.4ML SYR SUBCUT SCH (20:51)
[2020-01-17] MEDS: LEVOTHYROXINE SODIUM 50MCG TABLET PO SCH (06:07)
[2020-01-17 06:21] LABS: HEMOGLOBIN. 8.5 g/dL (12.0-16.0); MEAN CORPUSCULAR HEMOGLOBIN 29.6 pg (28.0-32.0); MEAN CORPUSCULAR VOLUME 90.3 fL (81.0-99.0); MEAN PLATELET VOLUME 7.6 fl (7.4-10.4); PLATELET 330 x1000/uL (130-400); RED BLOOD CELL COUNT 2.88 mill/uL (4.2-5.4); RED CELL DISTRIBUTION WIDTH 15.8 % (11.6-14.6)
[2020-01-17 06:37] LABS: CHLORIDE 119 mEq/L (98-107)
[2020-01-17 07:26] VITALS: BP 128/77
[2020-01-17] MEDS: ACETAMINOPHEN 325MG TABLET PO PRN (08:08)
[2020-01-17] MEDS: MULTIVITAMINS,THER W-MINERALS TABLET PO SCH (08:09)
[2020-01-17] MEDS: THIAMINE HCL 100MG TABLET PO SCH (08:09)
[2020-01-17] MEDS: FAMOTIDINE 20MG TABLET PO SCH (08:09)
[2020-01-17] MEDS: CARVEDILOL 6.25 MG TABLET PO SCH ×2 (08:09→20:50)
[2020-01-17 17:33] LABS: PLATELET ESTIMATE NORMAL
[2020-01-17] MEDS ORDERED: TRAMADOL 50MG TABLET PO PRN (19:15)
[2020-01-17] MEDS ORDERED: HYDROCODONE/ACETAMINOPHEN 5/325MG TABLET PO PRN ×2 (19:15)
[2020-01-17 20:00] VITALS: BP 128/84
[2020-01-17] MEDS: ENOXAPARIN 40MG/0.4ML SYR SUBCUT SCH (20:50)
[2020-01-18 04:07] LABS: 25-HYDROXY VITAMIN D3 20 ng/mL (.)
[2020-01-18] MEDS: LEVOTHYROXINE SODIUM 50MCG TABLET PO SCH (06:00)
[2020-01-18 08:00] VITALS: BP 130/78
[2020-01-18] MEDS: MULTIVITAMINS,THER W-MINERALS TABLET PO SCH (08:09)
[2020-01-18] MEDS: FAMOTIDINE 20MG TABLET PO SCH (08:09)
[2020-01-18] MEDS: LOPERAMIDE HCL 2MG CAPSULE PO PRN (08:09)
[2020-01-18] MEDS: CARVEDILOL 6.25 MG TABLET PO SCH (08:10)
[2020-01-18] MEDS: DOCUSATE SODIUM 100MG CAPSULE PO PRN (08:10)
[2020-01-18] MEDS: THIAMINE HCL 100MG TABLET PO SCH (08:10)
[2020-01-18] MEDS: ACETAMINOPHEN 325MG TABLET PO PRN (08:11)
[2020-01-18 10:20] VITALS: BP 132/77
== END 2020-01-18 11:08 | disposition home health service (06) | DRG 70 ==
PROVIDERS: ADMIT Physical Medicine & Rehabilitation Spinal Cord Injury Medicine; ATTEND Internal Medicine
DX: G93.41 Metabolic encephalopathy (principal); A41.9 Sepsis, unspecified organism; R65.21 Severe sepsis with septic shock; E46 Unspecified protein-calorie malnutrition; E87.0 Hyperosmolality and hypernatremia; E87.2 Acidosis; I42.9 Cardiomyopathy, unspecified; I50.42 Chronic combined systolic (congestive) and diastolic (congestive) heart failure; N17.9 Acute kidney failure, unspecified; K81.0 Acute cholecystitis; K43.6 Other and unspecified ventral hernia with obstruction, without gangrene; D64.9 Anemia, unspecified; E03.9 Hypothyroidism, unspecified; E87.6 Hypokalemia; E87.8 Other disorders of electrolyte and fluid balance, not elsewhere classified; I11.0 Hypertensive heart disease with heart failure; Z85.819 Personal history of malignant neoplasm of unspecified site of lip, oral cavity, and pharynx; Z95.0 Presence of cardiac pacemaker; Z98.84 Bariatric surgery status; K83.8 Other specified diseases of biliary tract; Z79.899 Other long term (current) drug therapy; Z82.49 Family history of ischemic heart disease and other diseases of the circulatory system; R26.9 Unspecified abnormalities of gait and mobility; R53.81 Other malaise; I95.9 Hypotension, unspecified; D69.6 Thrombocytopenia, unspecified; Z68.27 Body mass index [BMI] 27.0-27.9, adult
CPT/HCPCS: 36415; 80048; 80053; 82306; 82607; 82728; 82746; 83540; 83550; 83735; 84100; 84134; 84443; 85025; 92523; 92610; 93970; 97110; 97116; 97162; 97166; 97530; 97535; J1650

== ENCOUNTER 2021-03-16 09:38 | Inpatient (IN) | payer MEDICARE, MEDICAID ==
[~2021-03-16] VITALS: Ht 162.6 cm; Wt 74.9 kg
[~2021-03-16 09:38] MED LIST changes: +ALBU90AE INH; +CARV12.545 MT; -COR6 MT; +DIGO125T20 MT; -DIGO125T80 PO; -FAMO-135 MT; +FLUT1AER INH; -FOLI0.4T2 GT; -FURO-152 MT; +FURO40TA5 PO; +IBUP-2030 MT; +LORA10TA7 MT; -OMEP40CA12 MT; +OMEP40CA20 MT; +SACU1TAB MT; -TRAM50TA3 PO
[2021-03-16 11:21] LABS: CHLORIDE 112 mEq/L (98-107)
[2021-03-16 11:24] LABS: BASOPHILS % 1.2 % (0.0-2.0); EOSINOPHILS % 2.8 % (0.0-5.0); HEMATOCRIT. 34.5 % (36.0-48.0); HEMOGLOBIN. 11.4 g/dL (12.0-16.0); LYMPHOCYTES % 29.1 % (20.0-50.0); MEAN CORPUSCULAR HEMOGLOBIN 29.8 pg (28.0-32.0); MEAN PLATELET VOLUME 8.9 fl (7.4-10.4); NEUTROPHILS % 56.9 % (40.0-76.0); PLATELET 195 x1000/uL (130-400); RED BLOOD CELL COUNT 3.84 mill/uL (4.2-5.4); RED CELL DISTRIBUTION WIDTH 14.9 % (11.6-14.6)
[2021-03-16 12:15] LABS: CLARITY URINE CLEAR (CLEAR); COLOR URINE YELLOW (YELLOW); KETONES URINE NEGATIVE (NEGATIVE); LEUKOCYTE ESTERASE URINE 2+ (NEGATIVE); NITRITE URINE NEGATIVE (NEGATIVE); OCCULT BLOOD URINE NEGATIVE (NEGATIVE); PH URINE 6.5 (4.5-8.0); PROTEIN URINE 1+ (NEGATIVE); SPECIFIC GRAVITY URINE 1.018 (1.005-1.030); UROBILINOGEN URINE 0.2 E.U./dL (0.2-1.0)
[2021-03-16] MEDS ORDERED: FUROSEMIDE 40MG/4ML VIAL IVP ONE (13:45)
[2021-03-16] MEDS ORDERED: AMLODIPINE 5MG TABLET PO NR (15:00)
[2021-03-16 17:15] VITALS: BP 155/78
[2021-03-16 18:11] VITALS: BP 154/74
[2021-03-16] MEDS ORDERED: *PATIENT'S OWN MEDICATION STORAGE XX SCH (18:45)
[2021-03-16 19:31] VITALS: BP 162/83
[2021-03-16 20:07] LABS: PROTHROMBIN TIME 10.5 sec (9.6-11.0)
[2021-03-16] MEDS ORDERED: DEXTROSE 50% WATER 50ML SYRINGE IV PRN (20:15)
[2021-03-16] MEDS: BLOOD SUGAR DIAGNOSTIC STRIP TEST SCH (20:52)
[2021-03-16 21:31] VITALS: BP 167/68
[2021-03-16] MEDS: AMLODIPINE 5MG TABLET PO SCH (21:50)
[2021-03-17] VITALS (13 sets, daily range): BP systolic 125–162; BP diastolic 57–83
[2021-03-17] MEDS: BLOOD SUGAR DIAGNOSTIC STRIP TEST SCH ×4 (06:04→21:08)
[2021-03-17] MEDS ORDERED: ACETAMINOPHEN 650MG/20.3ML UDC GT PRN (07:00)
[2021-03-17] MEDS ORDERED: ONDANSETRON HCL 4MG/2ML INJ IV PRN (07:00)
[2021-03-17] MEDS ORDERED: LORAZEPAM 2MG/ML CPJ IV PRN (07:00)
[2021-03-17] MEDS ORDERED: SODIUM CHLORIDE 0.9% 1,000 ML IV SCH (07:00)
[2021-03-17 07:08] LABS: BASOPHILS % 2.7 % (0.0-2.0); HEMATOCRIT. 32.1 % (36.0-48.0); HEMOGLOBIN. 10.9 g/dL (12.0-16.0); MEAN CORPUSCULAR HEMOGLOBIN 30.4 pg (28.0-32.0); MEAN CORPUSCULAR VOLUME 89.7 fL (81.0-99.0); MEAN PLATELET VOLUME 8.7 fl (7.4-10.4); MONOCYTES % 13.4 % (2.0-8.0); NEUTROPHILS % 42.9 % (40.0-76.0); PLATELET 200 x1000/uL (130-400); RED BLOOD CELL COUNT 3.58 mill/uL (4.2-5.4)
[2021-03-17 07:23] LABS: CHLORIDE 108 mEq/L (98-107)
[2021-03-17] MEDS: FUROSEMIDE 40MG/4ML VIAL IVP SCH (08:48)
[2021-03-17] MEDS: AMLODIPINE 5MG TABLET PO SCH ×2 (08:49→21:12)
[2021-03-17] MEDS: MULTIVITAMINS,THER W-MINERALS TABLET PO SCH (08:49)
[2021-03-17] MEDS: LISINOPRIL 10MG TABLET PO SCH (08:49)
[2021-03-17] MEDS: ENOXAPARIN 40MG/0.4ML SYR SUBCUT SCH (08:49)
[2021-03-17] MEDS: HYDROCODONE/ACETAMINOPHEN 5/325MG TABLET PO PRN ×2 (12:29→21:21)
[2021-03-17] MEDS ORDERED: NALOXONE HCL 0.4MG/ML VIAL IV PRN (14:15)
[2021-03-18] VITALS (10 sets, daily range): BP systolic 109–140; BP diastolic 43–91
[2021-03-18] MEDS: BLOOD SUGAR DIAGNOSTIC STRIP TEST SCH ×3 (06:02→16:50)
[2021-03-18 07:14] LABS: BASOPHILS % 1.6 % (0.0-2.0); EOSINOPHILS % 4.7 % (0.0-5.0); HEMATOCRIT. 35.5 % (36.0-48.0); HEMOGLOBIN. 11.9 g/dL (12.0-16.0); LYMPHOCYTES % 43.3 % (20.0-50.0); MEAN CORPUSCULAR HEMOGLOBIN 30.7 pg (28.0-32.0); MEAN CORPUSCULAR VOLUME 91.4 fL (81.0-99.0); MEAN PLATELET VOLUME 8.8 fl (7.4-10.4); MONOCYTES % 13.9 % (2.0-8.0); NEUTROPHILS % 36.5 % (40.0-76.0); PLATELET 195 x1000/uL (130-400); RED BLOOD CELL COUNT 3.88 mill/uL (4.2-5.4); RED CELL DISTRIBUTION WIDTH 14.8 % (11.6-14.6)
[2021-03-18] MEDS: AMLODIPINE 5MG TABLET PO SCH (09:00)
[2021-03-18] MEDS: LISINOPRIL 10MG TABLET PO SCH (09:00)
[2021-03-18] MEDS: ENOXAPARIN 40MG/0.4ML SYR SUBCUT SCH (09:56)
[2021-03-18] MEDS: MULTIVITAMINS,THER W-MINERALS TABLET PO SCH (09:56)
[2021-03-18] MEDS: FUROSEMIDE 40MG/4ML VIAL IVP SCH (09:56)
[2021-03-18] MEDS ORDERED: LISI10TA26 PO (14:52)
[2021-03-18] MEDS ORDERED: AMLO5TAB88 PO (14:52)
== END 2021-03-18 18:08 | disposition home or self-care (01) | DRG 314 ==
LOC: ER 09:38 → 3WST 11:24 → EDBEDREQ 11:37 → ENRESERV 13:39
PROVIDERS: ADMIT Internal Medicine Nephrology; ATTEND Internal Medicine Nephrology
PROC: 4B02XSZ Measurement of Cardiac Pacemaker, External Approach (ICD-10-PCS; principal; 2021-03-17)
DX: I27.20 Pulmonary hypertension, unspecified (principal); I50.23 Acute on chronic systolic (congestive) heart failure; N39.0 Urinary tract infection, site not specified; I42.0 Dilated cardiomyopathy; I11.0 Hypertensive heart disease with heart failure; I08.1 Rheumatic disorders of both mitral and tricuspid valves; I49.5 Sick sinus syndrome; R13.10 Dysphagia, unspecified; R94.6 Abnormal results of thyroid function studies; R79.89 Other specified abnormal findings of blood chemistry; Z78.0 Asymptomatic menopausal state; Z95.0 Presence of cardiac pacemaker; Z98.84 Bariatric surgery status; Z82.49 Family history of ischemic heart disease and other diseases of the circulatory system; Z83.3 Family history of diabetes mellitus; Z88.5 Allergy status to narcotic agent; Z79.899 Other long term (current) drug therapy
CPT/HCPCS: 36415; 71045; 80048; 80053; 80162; 81003; 82962; 83735; 83880; 84443; 84484; 85025; 93005; 93306; 99291; J1650; J1940; J7030

== ENCOUNTER 2024-03-21 15:47 | Inpatient (IN) | payer MEDICARE, MEDICAID ==
[~2024-03-21] VITALS: Ht 152.4 cm; Wt 61.2 kg
[~2024-03-21 15:47] MED LIST changes: +AMLO5TAB88 PO; -CARV12.545 MT; -DIGO125T20 MT; +LISI10TA26 PO; -SACU1TAB MT
[2024-03-21 15:49] VITALS: O2SAT 96
[2024-03-21 20:38] LABS: BASOPHILS % 0.9 % (0.0-2.0); EOSINOPHILS % 0.8 % (0.0-5.0); HEMATOCRIT. 34.3 % (36.0-48.0); HEMOGLOBIN. 11.2 g/dL (12.0-16.0); LYMPHOCYTES % 21.6 % (20.0-50.0); MEAN CORPUSCULAR HEMOGLOBIN 29.5 pg (28.0-32.0); MEAN CORPUSCULAR HGB CONC 32.6 g/dL (31.0-37.0); MEAN CORPUSCULAR VOLUME 90.6 fL (81.0-99.0); MEAN PLATELET VOLUME 8.2 fl (7.4-10.4); NEUTROPHILS % 70.7 % (40.0-76.0); PLATELET 169 x1000/uL (130-400); RED BLOOD CELL COUNT 3.79 mill/uL (4.2-5.4); RED CELL DISTRIBUTION WIDTH 15.2 % (11.6-14.6)
[2024-03-21 20:43] LABS: CHLORIDE 106 mEq/L (98-107); POTASSIUM 4.4 mEq/L (3.5-5.1); SODIUM 139 mEq/L (136-145)
[2024-03-21 20:44] LABS: CALCIUM 9.1 mg/dL (8.7-10.4); CARBON DIOXIDE 29 mEq/L (21-32)
[2024-03-21 20:49] LABS: GLUCOSE 109 mg/dL (70-105); UREA NITROGEN BLOOD 19 mg/dL (9-23)
[2024-03-21 20:51] LABS: ALANINE AMINOTRANSFERASE 13 IU/L (10-49); ASPARTATE AMINOTRANSFERASE 23 IU/L (<34)
[2024-03-21 20:52] LABS: BILIRUBIN TOTAL 0.3 mg/dL (0.1-1.0)
[2024-03-21 21:17] LABS: TROPONIN I HIGH SENSITIVITY 135 ng/L (3.0-34)
[2024-03-22 02:00] VITALS: BP 162/79; PULSE 68; RESP 18; TEMP 36.78072; O2SAT 96
[2024-03-22 04:00] VITALS: BP 141/90; PULSE 67; RESP 20; TEMP 36.72516; O2SAT 98
[2024-03-22] MEDS: DEXTROSE 5% WATER 1,000 ML IV ONE (08:21)
[2024-03-22] MEDS: ENOXAPARIN 40MG/0.4ML SYR SUBCUT SCH (09:11)
[2024-03-22] MEDS ORDERED: ENOXAPARIN 40MG/0.4ML SYR SUBCUT SCH (17:00)
[2024-03-22] MEDS ORDERED: ONDANSETRON HCL 4MG/2ML INJ IV PRN (17:00)
[2024-03-22] MEDS ORDERED: ACETAMINOPHEN 325MG TABLET PO PRN ×2 (17:00)
[2024-03-22] MEDS ORDERED: IPRATROPIUM/ALBUTEROL 0.5-3(2.5)MG/3ML NEB NEB PRN (17:00)
[2024-03-22] MEDS ORDERED: HYDROCODONE/ACETAMINOPHEN 5/325MG TABLET PO PRN (17:45)
[2024-03-22] MEDS ORDERED: NALOXONE HCL 0.4MG/ML VIAL IV PRN (17:45)
[2024-03-22] MEDS ORDERED: ZOLPIDEM TARTRATE 5MG TABLET PO PRN (21:00)
[2024-03-22] MEDS: CLONIDINE 0.1MG TABLET PO PRN (21:27)
[2024-03-22 22:20] LABS: CLARITY URINE CLEAR (CLEAR); COLOR URINE YELLOW (YELLOW); GLUCOSE URINE NEGATIVE (NEGATIVE); KETONES URINE NEGATIVE (NEGATIVE); LEUKOCYTE ESTERASE URINE 2+ (NEGATIVE); NITRITE URINE NEGATIVE (NEGATIVE); OCCULT BLOOD URINE NEGATIVE (NEGATIVE); PH URINE 6.5 (4.5-8.0); PROTEIN URINE NEGATIVE (NEGATIVE)
[2024-03-22 22:28] VITALS: BP 167/86; PULSE 76; RESP 17; TEMP 37.0296
[2024-03-22 22:32] LABS: RBC URINE 0-2 /hpf (0-2); WBC URINE 25-50 /hpf (0-2)
[2024-03-22 22:33] LABS: BACTERIA URINE TRACE; SQUAMOUS EPITHELIAL CELL URINE FEW /lpf (RARE/1+)
[2024-03-23 06:50] LABS: BASOPHILS % 1.3 % (0.0-2.0); EOSINOPHILS % 3.7 % (0.0-5.0); HEMATOCRIT. 33.1 % (36.0-48.0); HEMOGLOBIN. 10.6 g/dL (12.0-16.0); LYMPHOCYTES % 35.8 % (20.0-50.0); MEAN CORPUSCULAR HEMOGLOBIN 28.8 pg (28.0-32.0); MEAN CORPUSCULAR HGB CONC 32.1 g/dL (31.0-37.0); MEAN CORPUSCULAR VOLUME 89.7 fL (81.0-99.0); MEAN PLATELET VOLUME 8.7 fl (7.4-10.4); MONOCYTES % 9.7 % (2.0-8.0); NEUTROPHILS % 49.5 % (40.0-76.0); PLATELET 181 x1000/uL (130-400); RED BLOOD CELL COUNT 3.69 mill/uL (4.2-5.4); RED CELL DISTRIBUTION WIDTH 14.8 % (11.6-14.6); WHITE BLOOD COUNT 5.1 x1000/uL (4.5-11.0)
[2024-03-23 07:03] LABS: CARBON DIOXIDE 29 mEq/L (21-32); CHLORIDE 104 mEq/L (98-107); POTASSIUM 4.1 mEq/L (3.5-5.1); SODIUM 139 mEq/L (136-145)
[2024-03-23 07:09] LABS: CREATININE 1.1 mg/dL (0.6-1.0); GLUCOSE 98 mg/dL (70-105); UREA NITROGEN BLOOD 13 mg/dL (9-23)
[2024-03-23 08:00] VITALS: BP 133/74; PULSE 63; RESP 18; TEMP 35.8362; TEMP 35.83620; O2SAT 100
[2024-03-23 14:45] VITALS: RESP 18
[2024-03-23] MEDS ORDERED: LORATADINE 10MG TABLET PO PRN (14:45)
[2024-03-23] MEDS: IBUPROFEN 800MG TABLET PO SCH (14:45)
[2024-03-23] MEDS: LISINOPRIL 10MG TABLET PO SCH (15:25)
[2024-03-23 16:06] VITALS: BP 137/61; PULSE 82; TEMP 97.2
[2024-03-23 17:44] LABS: T4 FREE 1.23 ng/dL (0.89-1.76); THYROID STIMULATING HORMONE 3.81 uIU/mL (0.55-4.78)
[2024-03-23] MEDS ORDERED: AMLODIPINE 5MG TABLET PO SCH (21:00)
[2024-03-27 15:07] LABS: C-PEPTIDE 5.5 ng/mL (1.1-4.4)
[2024-03-28 15:12] LABS: GASTRIN 415 pg/mL (0-115)
[2024-03-30 10:09] LABS: PRO INSULIN 4.9 pmol/L (0.0-10.0)
== END 2024-03-23 16:40 | disposition home or self-care (01) | DRG 638 ==
LOC: ER 15:47 → 5WST 20:09 → EDBEDREQTM 20:31 → EDBEDREQ 20:31 → 7WST 03-22 21:57
PROVIDERS: ADMIT Internal Medicine Nephrology; ATTEND Internal Medicine Nephrology
DX: E11.649 Type 2 diabetes mellitus with hypoglycemia without coma (principal); E23.0 Hypopituitarism; I42.9 Cardiomyopathy, unspecified; E87.20 Acidosis, unspecified; I11.0 Hypertensive heart disease with heart failure; I50.9 Heart failure, unspecified; D64.9 Anemia, unspecified; E03.9 Hypothyroidism, unspecified; I07.1 Rheumatic tricuspid insufficiency; I27.20 Pulmonary hypertension, unspecified; Z98.84 Bariatric surgery status; Z88.5 Allergy status to narcotic agent; Z83.3 Family history of diabetes mellitus; Z95.810 Presence of automatic (implantable) cardiac defibrillator; Z82.49 Family history of ischemic heart disease and other diseases of the circulatory system; Z90.49 Acquired absence of other specified parts of digestive tract
CPT/HCPCS: 36415; 71045; 80048; 80053; 81003; 82533; 82941; 82947; 82962; 83525; 83735; 84206; 84439; 84443; 84484; 84681; 85025; 86337; 86376; 93005; 99285; C1893; J1650

== ENCOUNTER 2025-02-18 17:43 | Emergency (ER) | payer MEDICARE, MEDICAID ==
[~2025-02-18] VITALS: Ht 162.6 cm; Wt 84.0 kg
[2025-02-18 17:50] VITALS: O2SAT 96
[2025-02-18] MEDS ORDERED: HYDR-4001 MT (21:39)
[2025-02-18 22:08] VITALS: BP 119/68; PULSE 76; RESP 54; TEMP 36.4; O2SAT 97
== END 2025-02-18 22:09 | disposition home or self-care (01) ==
LOC: ER 17:43
DX: T78.3XXA Angioneurotic edema, initial encounter (principal); T46.4X5A Adverse effect of angiotensin-converting-enzyme inhibitors, initial encounter; I10 Essential (primary) hypertension; Z79.899 Other long term (current) drug therapy; Z88.5 Allergy status to narcotic agent; Z98.84 Bariatric surgery status; Z95.0 Presence of cardiac pacemaker; X58.XXXA Exposure to other specified factors, initial encounter
CPT/HCPCS: 99284